=== PATIENT | female | born 1940 | race Caucasian/White ===

== ENCOUNTER 2018-10-15 06:39 | Inpatient (IN) | payer MEDICARE ==
[2018-10-07 10:37] LABS: HEMATOCRIT 44.3 % (37.0-47.0); HEMOGLOBIN 14.6 gm/dL (12.0-15.0); MCH 30.7 pg (26.0-34.0); MCV 92.9 fL (80.0-100.0); MPV 7.5 fl. (7.2-11.1); RBC 4.77 mil/uL (4.20-5.00); WBC 5.9 thou/uL (4.0-11.0)
[2018-10-07 10:42] LABS: URINE BILIRUBIN NEGATIVE (Negative); URINE BLOOD NEGATIVE (Negative); URINE CLARITY CLEAR; URINE COLOR YELLOW; URINE GLUCOSE-RANDOM NEGATIVE (Negative); URINE KETONES NEGATIVE (Negative); URINE LEUKOCYTES-REFLEX NEGATIVE (Negative); URINE NITRITE-REFLEX NEGATIVE (Negative); URINE PROTEIN NEGATIVE (Negative); URINE SPECIFIC GRAVITY >= 1.030 (1.005-1.030); URINE UROBILINOGEN 0.2 E.U./dl (0.2-1.0)
[2018-10-07 10:46] LABS: INR 1.1; PROTIME 10.9 Seconds (9.20-11.50)
[2018-10-07 10:55] LABS: ALBUMIN 3.6 g/dL (3.4-5.0); CALCIUM 9.4 mg/dL (8.5-10.1); CREATININE 1.2 mg/dL (0.6-1.3); POTASSIUM 3.9 mmol/L (3.5-5.1); TOTAL BILIRUBIN 0.6 mg/dL (<0.1-1.0); TOTAL PROTEIN 7.2 g/dL (6.4-8.2)
--- NOTE | 2018-10-07 16:33 | EKG ---
[place] [address] ELECTROCARDIOGRAM REPORT Name: BERTA RUVALCABA Room: PRE IN [facility]#: [id number] Admission: Attend Phys: Tala Hardwick Discharge: Date of : 44 Report #: [id number] THIS REPORT FOR: //name// [facility] Test Date: 2018-10-07 Test Time: 11:33:29 Pat Name: BERTA RUVALCABA Department: Room: Gender: F Coremaker Pipe: [facility] : 1940 Requested By: Daev Yates Order Number: [id number] Renata COSTELLO: Bhupendra Reina Measurements Intervals Ferney Rate: 62 P: IL: 166 QRS: -40 QRSD: 157 T: 137 QT: 446 QTc: 453 Interpretive Statements A-V dual-paced complexes w/ some inhibition No further analysis attempted due to paced rhythm No previous ECG available for comparison Electronically Signed On 10-07-2018 16:33:00 PLATFORM CONSULTANT by Bhupendra Reina [email or web address] <ELECTRONICALLY SIGNED> By: Bhupendra Reina MD, [facility] 10/07/18 1633 1133 [id number] Bhupendra Reina MD, FACC /EPI
[~2018-10-15] VITALS: Ht 152.4 cm; Wt 79.4 kg
--- NOTE | ~2018-10-15 | OP ---
[facility] [address] [place] [address] OPERATIVE REPORT Name: BERTA RUVALCABA Room: [address] IN [facility].R.#: [id number] Admission: 10/15/18 Attend Phys: Tala Hardwick Discharge: Date of : 44 Report #: [id number] THIS REPORT FOR: //name// CC: Carlton Izaguirre PREOPERATIVE DIAGNOSIS: Right knee osteoarthritis. POSTOPERATIVE DIAGNOSIS: Right knee osteoarthritis. PROCEDURE: Right total knee arthroplasty with Navio. ANESTHESIA: General endotracheal. ESTIMATED BLOOD LOSS: 50 mL. ANTIBIOTICS: Ancef preoperatively. DRAINS: Medium Hemovac. COMPLICATIONS: None. CONDITION: Stable to recovery room. DESCRIPTION OF PROCEDURE: The patient was seen in the operative suite, placed supine on the operative table, given general anesthesia. A well-padded tourniquet applied to the upper thigh inflated to 300 mmHg after gravity exsanguination. The operative knee was sterilely prepped and draped. Surgery begun by midline incision. This was carried down through subcutaneous tissues. A medial parapatellar arthrotomy was performed and carried down the bone. The patella was then everted and excess osteophytes and soft tissue from around the femur and the tibia were removed. The Navio tracking device was then applied and registered to the navigation software. The femur was then prepared in appropriate fashion. The Navio robotic assistance was then activated and utilized for alignment of the femoral cutting guide, which was then applied and appropriate cut was made. The 4-in-1 cutting block was then applied and checked for rotation alignment with the Navio robotic assistance and pinned in appropriate position. Appropriate cuts were made. The tibia was then exposed. Excess meniscus was removed. Retraction was placed on collateral ligaments. The tibial cutting block was then applied, checked with Navio robotic assistance for rotational alignment and slope and appropriate cut was made. Tibial bone was removed. The tibial base plate was then applied, checked for rotational alignment with the drop kathy. The pins were positioned. The pin was then applied and box cut was reamed. This was trialed with the appropriate spacer, which showed excellent fit and fill and excellent stability of the knee through all range of motion. The patella was reamed to appropriate fashion, [place] [address] OPERATIVE REPORT Name: BERTA RUVALCABA Room: [address] IN [facility].#: [id number] Admission: 10/15/18 Attend Phys: Tala Hardwick Discharge: Date of : 44 Report #: [id number] appropriate size. Three peg holes were drilled. It was then trialed and showed excellent flexion, extension, excellent tracking of the patella within the groove. These trials were removed. The tibia was punched in appropriate fashion. Bone ends were cleaned with Pulsavac irrigation and cement was mixed and applied the final implants. It was then malleted in position and held the knee in extension and compressed to allow the cement to cure. After it cured, excess was removed using [place] and osteotome. The wound was then copiously irrigated, and the final spacer was then malleted in position. The tourniquet was deflated. Hemostasis was obtained with electrocautery. Pain cocktail was injected. PRP gel was sprayed through internal aspects of the knee. Medium Hemovac drain applied. The capsule was closed with 2 FiberWire and 1 Vicryl in [id number] fashion. Skin was closed with 2-0 Vicryl and 3-0 running Monocryl, and the incisions for the tracker sites were closed with nylon. Dermabond and sterile dressing applied. Delano wrap and PolarCare applied. The patient transported to recovery room in stable condition. Counts were correct throughout the procedure. By: [id number] Yates II, DO /nt
[~2018-10-15 06:39] MED LIST: ASPIR 8181 M1 PO; BUTALB-APAP-CA1 EACH PO; LOPRESSOR50 PO; SERTRALINE HCL100 MG PO; SYNTHROID50 MCG PO; TRAZODONE HCL50 MG PO; VITAMIN D250000 UNIT PO
[2018-10-15 09:30] VITALS: BP 128/87
[2018-10-15 13:20] VITALS: BP 144/83
[2018-10-15 15:37] VITALS: BP 143/70
--- NOTE | 2018-10-15 16:03 | NUR ---
PT ADMITTED TO ROOM 116 S/P RT KNEE TKA AROUND 1320. REFER TO ASSESSMENT. SAFETY AND FALL PRECAUTIONS IN PLACE D/T PT HAS DX DEMENTIA. FAMILY STATES THEY WILL BE STAYING THE NIGHT AT THE HOSPITAL WITH THE PT TO HELP WITH REORIENTATION AND FOR PT SAFETY. DRESSING TO RT KNEE C/D/I. POLAR CARE IN PLACE. HEMOVAC DRAINING WITHOUT DIFFICULTY. PT HAS BEEN CALM AND COOPERATIVE SINCE ADMISSION. NO OTHER CONCERNS AT THIS TIME. CLWR. WCTM.
[2018-10-15 20:00] VITALS: BP 138/97
[2018-10-16 04:00] VITALS: BP 147/67
[2018-10-16 04:15] LABS: HEMATOCRIT 41.9 % (37.0-47.0); HEMOGLOBIN 13.9 gm/dL (12.0-15.0)
--- NOTE | 2018-10-16 05:12 | NUR ---
PT A&Ox3 DURING SHIFT. VITALS STABLE. CAPNO ON 3L O2, IN PLACE. DRESSING CLEAN, DRY AND INTACT. COLE WRAP, POLAR CARE, TEDS AND FOOT PUMPS IN PLACE. CPM STARTED THIS SHIFT, TOLERATED WELL. IV IN L WRIST AND L HAND PATENT, INFUSING. USED BEDPAN DURING SHIFT, CONFUSED AND HAD URINATION URGENCY. WAS RESTLESS THROUGHOUT THE SHIFT. HEMOVAC IN PLACE. FAMILY STAYED OVERNIGHT IN ROOM. PAIN CONTROLLED WITH OXY IR. FALL PRECAUTIONS IN PLACE. CALL LIGHT WITHIN REACH. HOURLY ROUNDING COMPLETE. WILL CONTINUE TO MONITOR.
[2018-10-16 09:00] VITALS: BP 128/68
--- NOTE | 2018-10-16 12:00 | NUR ---
SPOKE WITH PT.AND NIECE,DIANDRA. DIANDRA IS ALSO PT.'S DPOA. SHE LIVES WITH PT.ALONG WITH PT.'S SON-ANGELA. PER DIANDRA, SOMEONE IS WITH PT.AT ALL TIMES. SHE SAID NORMALLY PT.IS ABLE TO BATHE INDEPENTLY, DOES HER OWN LAUNDRY,AND DOES A LITTLE CLEANING. DIANDRA OR ANGELA COOKS. PT.MAINLY SLEPT DURING CONVERSATION. PT.HAS A WC AND WALKER AT HOME. SHE SAID THEY LIVE IN A SMALL HOUSE SO THE DISTANCE FROM PT.'S BEDROOM TO BATHROOM IS SHORT. THEY JUST PURCHASED HER A NEW BED THAT HAS THE HEAD THAT RAISES. DIANDRA SAID SHE HAS HAD A TOTAL KNEE AND HIP SURGERY BEFORE SO SHE KNOWS WHAT PT.IS GOING THROUGH. DIANDRA SEEMS NERVOUS, CAN'T SIT STILL, FLIPS HER HAIR BACK OFF FOREHEAD FREQUENTLY. SHE WOULD LIKE TO TAKE PT.HOME AT DISCHARGE. EXPLAINED PT.NEEDED A COUPLE OF MORE THERAPY SESSIONS BEFORE THERAPIST CAN MAKE HER RECOMMENDATION.
--- NOTE | 2018-10-16 17:05 | NUR ---
ASSUMED CARE OF PATIENT AT APPROX 0730. ALERT TO SELF, VERY CONFUSED AND IMPULSIVE. ASSESSMENT COMPLETED AND CHARTED. VSS ON ROOM AIR. NO COMPLAINTS OF NAUSEA OR SOA. PAIN HAS BEEN MANAGED WITH MEDICATIONS. PATIENT WORKED WITH THERAPIES TODAY AND PROGRESSING TOWARD GOALS. VERY IMPULSIVE AND NEEDS REDIRECTION. PATIENT TRIED TO CLIMB OUT OF BED WITH CPM MACHINE ATTACHED TO HER LEG, SO THAT SHE COULD USE THE BEDSIDE COMMODE. BED ALARM SOUNDED AND STAFF INTERVENED TO ASSIST PATIENT TO THE COMMODE AND BACK INTO BED. FALL PRECAUTIONS IN PLACE, CALL IGHT PLACED IN REACH, NURSING WILL MONITOR FREQUENTLY.
[2018-10-16 20:00] VITALS: BP 130/50
--- NOTE | 2018-10-17 05:37 | NUR ---
PT A&Ox3 DURING SHIFT. VITALS STABLE. UP WITH MAX ASSIST OF 2 TO CAMMODE, USING GAITBELT AND WALKER. NEEDS DIRECTED MULTIPLE TIMES HOW TO AMBULATE SAFELY. 4 SIDE RAILS UP FOR PT SAFETY. DRESSING CLEAN, DRY AND INTACT. BILATERAL THIGH HIGH TEDS, FOOT PUMPS AND POLAR CARE IN PLACE. IV IN L WRIST AND IN L HAND PATENT, SL. PT REFUSED 4AM BLOOD DRAW. PAIN CONTROLLED WITH NORCO. FALL PRECAUTIONS IN PLACE. HOURLY ROUNDING COMPLETE. CALL LIGHT WITHIN REACH. WILL CONTINUE TO MONITOR.
[2018-10-17 10:05] VITALS: BP 124/57
[2018-10-17] MEDS ORDERED: XARELTO10 MG PO (10:38)
[2018-10-17] MEDS ORDERED: PERCOCET PO (10:39)
[2018-10-17 15:36] VITALS: BP 127/66
--- NOTE | 2018-10-17 15:56 | NUR ---
PT.HAS DISCHARGE ORDERS TO RETURN HOME WITH NIECE AND SON. PHYSCIAL THERAPIST RECOMMENDED HOME WITH HH LONG SOMEONE IS WITH HER 23/04 AND CONTACT GUARD ASSIST AT ALL TIMES WHEN UP. SET UP HOME [facility] WILL [facility]. FAXED ORDERS,H&P,OP REPORT,MED LIST AND FACE TO FACE SHEET AND DEMOGRAPHICS. ABOVE INFORMATION GIVEN TO PT.AND NIECE.
--- NOTE | 2018-10-17 16:18 | NUR ---
CALLED IN PTS PRESCRIPTION WRITTEN TO HER PHARMACY. COPAY IS $193. PT.AND NIECE INFORMED. NIECE HAD TOLD CM THAT PT.S HAD MADE A TRUST PRIOR TO HIS PASSING THAT WOULD PAY FOR ANY CARE OR MEDICAL THINGS THAT SHE NEEDED. NIECE SAID SHE HAS THAT SAME MEDICINE AND HAS 10MG TABLETS. SHE WILL PROBABLY JUST GIVE HER SOME OF HERS BECAUSE SHE HAS EXTRA. ENCOURAGED HER TO GET PTS. PRESCRIPTION FILLED.
--- NOTE | 2018-10-17 16:49 | NUR ---
ASSUMED CARE OF PATIENT AT APPROX 0730. ALERT AND ORIENTED 2-3. PATEINT CONFUSED AND IMPULSIVE, NEEDING REDIRECTION WITH COMMANDS. ASSESSMENT COMPLETED AND CHARTED. VSS ON ROOM AIR. NO COMPLAINTS OF NAUSEA OR SOA. PAIN HAS BEEN MANAGED WITH ORAL MEDICATIONS. PATIENT WORKED WELL WITH THERAPIES TODAY. DISCHARGED TO HOME WITH HOME HEALTH AT 1620 WITH ALL PERSONAL BELONGINGS, PRESCRIPTIONS AND DISCHARGE INFORMATION.
== END 2018-10-17 16:20 | disposition home health service (06) | DRG 470 ==
LOC: M.PRE 06:39 → M.ORTHSURG 07:56 → M.TBA 07:56 → M.PRE 09:14 → M.ORTHSURG 13:19 → M.PRE 13:32 → M.ORTHSURG 10-17 16:20
PROVIDERS: Orthopaedic Surgery; ADMIT Internal Medicine
PROC: 0SRC0J9 Replacement of Right Knee Joint with Synthetic Substitute, Cemented, Open Approach (ICD-10-PCS; principal; 2018-10-15)
DX: M17.11 Unilateral primary osteoarthritis, right knee (principal); J98.11 Atelectasis; E03.9 Hypothyroidism, unspecified; F32.9 Major depressive disorder, single episode, unspecified; F17.210 Nicotine dependence, cigarettes, uncomplicated; Z88.6 Allergy status to analgesic agent; Z95.0 Presence of cardiac pacemaker; Z79.01 Long term (current) use of anticoagulants; Z95.2 Presence of prosthetic heart valve; Z90.49 Acquired absence of other specified parts of digestive tract; Z79.82 Long term (current) use of aspirin; Z79.899 Other long term (current) drug therapy